=== PATIENT | male | born 1980 | race American Indian/Alaskan Native ===

== ENCOUNTER 2017-12-21 13:16 | Emergency (ER) | payer SELFPAY ==
[2017-12-21 13:23] VITALS: BP 118/72
[2017-12-21] MEDS ORDERED: NACL 0.9% IR ONE (14:16)
[2017-12-21] MEDS ORDERED: MOTRIN PO ONE (14:16)
[2017-12-21] MEDS ORDERED: XYLOCAINE 1% 20 mL INFILTRATI ONE (14:16)
[2017-12-21] MEDS ORDERED: BOOSTRIX IM ONE (14:16)
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
== END 2017-12-21 15:35 | disposition home or self-care (01) ==
LOC: ED 13:16
DX: S61.512A Laceration without foreign body of left wrist, initial encounter (principal); W25.XXXA Contact with sharp glass, initial encounter; Y93.89 Activity, other specified; Y99.8 Other external cause status; Y92.89 Other specified places as the place of occurrence of the external cause
CPT/HCPCS: 90471; 90715